=== PATIENT | female | born 1945 | race Caucasian/White ===

== ENCOUNTER 2016-06-20 13:00 | Emergency (ER) | payer MEDICARE, MEDICAID ==
[2016-06-20 13:19] VITALS: BP 138/78
--- NOTE | 2016-06-20 14:06 | EDM.PDOC ---
ED HPI Trauma - General Chief Complaint: Lower Extremity Injury/Pain Stated Complaint: ?? BRUISING IN HER LEGS/FEET Time Seen by Provider: 06/20/16 13:20 Source: Reports: Patient, RN, RN notes reviewed History Limitations: Reports: No limitations - History of Present Illness INITIAL COMMENTS - FREE TEXT/NARRATIVE: 70-year-old female presents emergency room with complaints of bruising in her lower legs. He denies any specific injury today. She did fall about a week ago and had a bruise in the lower leg but notices new bruising over the left foot and right proximal and lower leg. She denies any significant pain or discomfort she denies any swelling in her joints. She is on Coumadin for atrial fibrillation. She had her INR checked last Tuesday and it was subtherapeutic. Her Coumadin has been adjusted. She's also insulin-dependent diabetic and has no other complaints or concerns. No shortness of breath no chest pain no swelling in her lower legs. Allergies/ADRs: Allergies Penicillins Allergy (Verified 06/20/16 13:21) Vomiting Home Medications: Ambulatory Orders Acetaminophen 650 mg PO Q4HR PRN 05/03/16 [Confirmed 05/03/16] Albuterol [IJD: Albuterol HFA] 1 puff INH Q4HR PRN 05/03/16 [Confirmed 05/03/16] Albuterol [Proventil HFA] 6.7 gm INH Q4H PRN 05/03/16 [Confirmed 05/03/16] Aspirin [Halfprin] 81 mg PO BRK 05/03/16 [Confirmed 05/03/16] Cinnamon Bark [Cinnamon] 500 mg PO BID 05/03/16 [Confirmed 05/03/16] Furosemide [Lasix] 40 mg PO DAILY 05/03/16 [Confirmed 05/03/16] Insulin Glargine,Hum.Rec.Anlog [Lantus Solostar] 18 unit SQ 2100 05/03/16 [ Confirmed 05/03/16] L.acidoph,Paracasei, B.lactis [Probiotic] 1 each PO BID 05/03/16 [Confirmed ] Losartan [Cozaar] 50 mg PO DAILY 05/03/16 [Confirmed 05/03/16] Lutein 20 mg PO DAILY 05/03/16 [Confirmed 05/03/16] MV,Ca,Min/Iron Fum/FA/Vit K [Multi For Her Tablet] 1 cap PO DAILY 05/03/16 [ Confirmed 05/03/16] Menthol [Biofreeze] 1 applic TOP QID PRN 05/03/16 [Confirmed 05/03/16] Metoprolol Tartrate [Lopressor] 100 mg PO DAILY 05/03/16 [Confirmed 05/03/16] Nitroglycerin [Nitrostat] 0.4 mg SL Q2M PRN 05/03/16 [Confirmed 05/03/16] [place]-3 Fatty Acids/Fish Oil [Fish Oil 1,200 mg Softgel] 1,200 mg PO BID [Confirmed 05/03/16] Rup Rub 1 applic TOP BID PRN 05/03/16 [Confirmed 05/03/16] Warfarin [Coumadin] 5 mg PO SUTUWETHFRSA@1800 05/03/16 [Confirmed 05/03/16] Warfarin [Coumadin] 7.5 mg PO MO@1800 05/03/16 [Confirmed 05/03/16] atorvaSTATin [Lipitor] 20 mg PO BEDTIME 05/03/16 [Confirmed 05/03/16] metFORMIN [Glucophage] 1,000 mg PO BIDMEALS 05/03/16 [Confirmed 05/03/16] Codeine/guaiFENesin [Robitussin AC] 10 ml PO Q6H PRN #10 cup 05/11/16 Dulaglutide [Trulicity] 0.75 mg SQ MO #4 pen 05/11/16 Loperamide [Imodium] 2 mg PO Q4H PRN #20 cap 05/11/16 Ondansetron HCl [Zofran] 4 mg PO Q4H PRN #20 tablet 05/11/16 Cartilage/Collagen/Bor/Hyalur [Joint Health Tablet] 1 tab PO BID 06/20/16 [ Confirmed 06/20/16] L.acidoph,Paracasei, B.lactis [Probiotic] 1 cap PO BID 06/20/16 [Confirmed 06/20] Lutein 40 mg PO DAILY 06/20/16 [Confirmed 06/20/16] Ubidecarenone [Co Q-10] 1 cap PO DAILY 06/20/16 [Confirmed 06/20/16] Past Medical History HEENT History: Reports: Impaired vision Cardiovascular History: Reports: Arrhythmia, High cholesterol, Hypertension Respiratory History: Reports: Bronchitis, recurrent Gastrointestinal History: Reports: Cholelithiasis 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: Musculoskeletal History: Reports: Other (see below) Other Musculoskeletal History: polio Psychiatric History: Reports: Depression Endocrine/Metabolic History: Reports: IDDM, Obesity/BMI 30+ Hematologic History: Reports: Anticoagulation therapy - Past Surgical History Cardiovascular Surgical History: Reports: None GI Surgical History: Reports: None Endocrine Surgical History: Reports: None Musculoskeletal Surgical History: Reports: None Social & Family History - Tobacco Use Smoking Status *Q: Unknown Ever Smoked - Caffeine Use Caffeine Use: Reports: Coffee - Recreational Drug Use Recreational Drug Use: No Review of Systems - Review of Systems Review Of Systems: ROS reveals no pertinent complaints other than HPI. Trauma Exam - Physical Exam Exam: See Below Exam Limited By: No limitations General Appearance: Reports: alert, WD/WN, no apparent distress Head: Reports: atraumatic, normocephalic Eyes: bilateral eye: EOMI Throat/Mouth: Reports: Normal inspection, Normal voice, No airway compromise Neck: Reports: non-tender, full range of motion Respiratory Exam: Reports: no respiratory distress, lungs clear Cardiovascular: Reports: regular rate, rhythm, no edema Extremities: Reports: no evidence of injury, normal range of motion, non-tender , no pedal edema. Denies: bony-point tenderness, joint effusion Neurologic: Reports: alert, oriented x 3 Skin: Reports: Ecchymosis (various degrees of bruising over the lower legs bilaterally. These are mild without hematoma. She is on anticoagulation) Course - Vital Signs Last Recorded V/S: Last Vital Signs Temp 98 F 06/20/16 13:15 Pulse 72 06/20/16 13:15 Resp 20 06/20/16 13:15 BP 138/78 06/20/16 13:15 Pulse Ox 94 L 06/20/16 13:15 - Orders/Labs/Meds Labs: Laboratory Tests 06/20/16 06/20/16 06/20/16 Range/Units 13:20 13:20 13:37 Hgb 16.0 (12.0-16.0) g/dL Hct 49.4 H (37.0-47.0) % PT 21.1 H (8.9-11.4) SEC INR 2.0 H (0.9-1.1) APTT 29.2 (20.8-31.2) SEC POC Glucose 213 H (74-106) mg/dl - Re-Assessments/Exams Free Text/Narrative Re-Assessment/Exam: 06/20/16 14:05 Patient is pleasant cooperative no acute distress at any time throughout examination. She is talkative and conversive. Departure - Departure Time of Disposition: 14:05 Disposition: Home, Self-Care 01 Condition: good Clinical Impression: Anticoagulation therapy continued upon discharge Superficial bruising of lower leg Qualifiers: Encounter type: initial encounter Laterality: unspecified laterality Qualified Code(s): S80.10XA - Contusion of unspecified lower leg, initial encounter Instructions: Warfarin: What You Need to Know, Warfarin Coagulopathy, Hematoma , [id number] Referrals: Andrea Adler MD [Primary Care Provider] - Forms: ED Department Discharge Additional Instructions: 1. Your bruising is likely related to you been on anticoagulation therapy Coumadin. Your INR today was therapeutic at 2.0. You should continue with your regular routine and dosage of Coumadin. 2. Call your provider tomorrow and notify that he been in the emergency room and had her INR checked and was therapeutic. - Assessment/Plan Assessment:: 1. Bruising on the lower legs 2. Anticoagulation therapy, INR therapeutic at 2.0. Plan: 1. Continue with your medications including your Coumadin as prescribed by her family physician. 2. Notify her family physician tomorrow but you were in the ER. Her INR is therapeutic at 2.0. 3. The bruising your experience is likely because of her anticoagulation. These are common. There is no evidence of a hematoma or hemarthrosis of the joint. All patient's questions were answered today and she was discharged to home.
== END 2016-06-20 14:35 | disposition home or self-care (01) ==
LOC: KA.ED 13:00
DX: S80.12XA Contusion of left lower leg, initial encounter (principal); S80.11XA Contusion of right lower leg, initial encounter; S90.32XA Contusion of left foot, initial encounter; E78.00 Pure hypercholesterolemia, unspecified; I10 Essential (primary) hypertension; F32.9 Major depressive disorder, single episode, unspecified; E66.9 Obesity, unspecified; E11.9 Type 2 diabetes mellitus without complications; Z88.0 Allergy status to penicillin; Z79.01 Long term (current) use of anticoagulants; W19.XXXA Unspecified fall, initial encounter
CPT/HCPCS: 36415; 82962; 85014; 85018; 85610; 85730; 99282; 99283

== ENCOUNTER 2016-12-11 12:15 | Emergency (ER) | payer MEDICARE, MEDICAID ==
[2016-12-11] MEDS ORDERED: Sodium Chloride 0.9% 5 ML Syringe FLUSH PRN (13:11)
[2016-12-11] MEDS ORDERED: Sodium Chloride 0.9% 1,000 ML IV ONE (13:11)
[2016-12-11] MEDS ORDERED: Acetaminophen 500 MG Tab PO ONE (13:23)
--- NOTE | 2016-12-11 13:25 | EDM.PDOC ---
ED HPI GENERAL MEDICAL PROBLEM - General Chief Complaint: General Stated Complaint: RECTAL BLEEDING Time Seen by Provider: 12/11/16 13:15 Source of Information: Reports: Patient History Limitations: Reports: No Limitations - History of Present Illness INITIAL COMMENTS - FREE TEXT/NARRATIVE: 71 YO WF presents to ER with 2 day history of rectal bleeding. Pt reports she was seen in [employer] 4 days ago after having her INR checked and staff noticed she looked pale and clammy. Pt was sent to ER and was evaluated for palpitations and abdominal pain. Pt had a Hgb of 14.8; INR 1.74; Pt was told she had an elevated lipase and told to stay off her metformin for 2 days. Pt had a CT abd/pelvis which showed NAD. Pt reports her last bloody bowel movement was last night. Pt states she has had 3 large bowel movements since yesterday with blood mixed with stool. Pt denies any chest pain, shortness of breath or diaphoresis at this time. Pt states she restarted her metformin this am. Onset Date: 12/08/16 Duration: Day(s): (5) Location: Reports: Generalized Severity: Mild Improves with: Reports: None Worsens with: Reports: None Associated Symptoms: Reports: Headaches, Loss of Appetite, Malaise, Weakness. Denies: Chest Pain, Cough, cough w sputum, Diaphoresis, Fever/Chills, Nausea/ Vomiting, Rash, Seizure, Shortness of Breath, Syncope - Related Data Allergies Allergy/AdvReac Type Severity Reaction Status Date / Time Penicillins Allergy Vomiting Verified 06/20/16 13:21 Home Meds: Home Meds Acetaminophen 650 mg PO Q4HR PRN 05/03/16 [History] Albuterol [IJD: Albuterol HFA] 1 puff INH Q4HR PRN 05/03/16 [History] Albuterol [Proventil HFA] 6.7 gm INH Q4H PRN 05/03/16 [History] Aspirin [Halfprin] 81 mg PO BRK 05/03/16 [History] Losartan [Cozaar] 50 mg PO DAILY 05/03/16 [History] Menthol [Biofreeze] 1 applic TOP QID PRN 05/03/16 [History] Nitroglycerin [Nitrostat] 0.4 mg SL Q5M PRN MDD 3 05/03/16 [History] [place]-3 Fatty Acids/Fish Oil [Fish Oil 1,200 mg Softgel] 1,200 mg PO BID [History] Rup Rub 1 applic TOP BID PRN 05/03/16 [History] Warfarin [Coumadin] 5 mg PO SUTUWETHFRSA@1800 05/03/16 [History] Warfarin [Coumadin] 7.5 mg PO MO@1800 05/03/16 [History] atorvaSTATin [Lipitor] 20 mg PO BEDTIME 05/03/16 [History] metFORMIN [Glucophage] 1,000 mg PO BIDMEALS 05/03/16 [History] Cartilage/Collagen/Bor/Hyalur [Joint Health Tablet] 1 tab PO BID 06/20/16 [ History] L.acidoph,Paracasei, B.lactis [Probiotic] 1 cap PO BID 06/20/16 [History] Lutein 40 mg PO DAILY 06/20/16 [History] Ubidecarenone [Co Q-10] 1 cap PO DAILY 06/20/16 [History] Aspirin [Halfprin] 81 mg PO BRK 12/11/16 [History] Cholecalciferol (Vitamin D3) [Vitamin D3] 2,000 unit PO DAILY 12/11/16 [History] Empagliflozin [Jardiance] 10 mg PO DAILY 12/11/16 [History] Fluconazole [Diflucan] 100 mg PO DAILY 12/11/16 [History] Insulin Glarg,Human.Rec.Analog [LantUS Solostar] 22 units SUBCUT BEDTIME [History] Metoprolol Tartrate [Lopressor] 50 mg PO BID 12/11/16 [History] Ubidecarenone [Co Q-10] 10 mg PO DAILY 12/11/16 [History] Past Medical History HEENT History: Reports: Impaired Vision Cardiovascular History: Reports: Arrhythmia, High Cholesterol, Hypertension Respiratory History: Reports: Bronchitis, Recurrent Gastrointestinal History: Reports: Cholelithiasis 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: Musculoskeletal History: Reports: Other (See Below) Other Musculoskeletal History: polio Psychiatric History: Reports: Depression Endocrine/Metabolic History: Reports: IDDM, Obesity/BMI 30+ Hematologic History: Reports: Anticoagulation Therapy - Past Surgical History Cardiovascular Surgical History: Reports: None GI Surgical History: Reports: None Endocrine Surgical History: Reports: None Musculoskeletal Surgical History: Reports: None Social & Family History - Tobacco Use Smoking Status *Q: Unknown Ever Smoked - Caffeine Use Caffeine Use: Reports: Coffee - Recreational Drug Use Recreational Drug Use: No ED ROS GENERAL - Review of Systems Review Of Systems: See Below Constitutional: Reports: Malaise HEENT: Reports: No Symptoms Respiratory: Reports: No Symptoms Cardiovascular: Reports: No Symptoms Endocrine: Reports: No Symptoms GI/Abdominal: Reports: Bloody Stool. Denies: Abdominal Pain : Reports: No Symptoms Musculoskeletal: Reports: No Symptoms Skin: Reports: No Symptoms Neurological: Reports: No Symptoms Psychiatric: Reports: No Symptoms Hematologic/Lymphatic: Reports: No Symptoms Immunologic: Reports: No Symptoms ED EXAM, GENERAL - Physical Exam Exam: See Below Exam Limited By: No Limitations General Appearance: Alert, WD/WN, No Apparent Distress Head: Atraumatic, Normocephalic Neck: Normal Inspection, Supple, Non-Tender, Full Range of Motion Respiratory/Chest: No Respiratory Distress, Lungs Clear, Normal Breath Sounds, No Accessory Muscle Use, Chest Non-Tender Cardiovascular: Normal Peripheral Pulses, No Edema, No Gallop, No JVD, No Murmur , No Rub, Irregularly Irregular GI/Abdominal: Normal Bowel Sounds, Soft, Non-Tender, No Organomegaly, No Distention, No Abnormal Bruit, No Mass Back Exam: Normal Inspection, Full Range of Motion, NT Extremities: Normal Inspection, Normal Range of Motion, Non-Tender, Normal Capillary Refill, No Pedal Edema Neurological: Alert, Oriented, CN II-XII Intact, Normal Cognition, Normal Gait, Normal Reflexes, No Motor/Sensory Deficits Psychiatric: Normal Affect, Normal Mood Skin Exam: Warm, Dry, Intact, Normal Color, No Rash Lymphatic: No Adenopathy Course - Vital Signs Last Recorded V/S: Last Vital Signs Temp 37.9 C 12/11/16 12:41 Pulse 109 H 12/11/16 12:41 Resp 20 12/11/16 12:41 BP 127/63 12/11/16 12:41 Pulse Ox 95 12/11/16 12:41 - Orders/Labs/Meds Orders: Active Orders 24 hr Category Date Time Status Patient Status Manage Transfer [TRANSFER] Routine ADT 12/11/16 15:04 Ordered Peripheral IV Care [RC] . DIRECTED Care 12/11/16 13:11 Active Sodium Chloride 0.9% [Syrex Flush] Med 12/11/16 13:11 Active 5 ml FLUSH Q8HR PRN Peripheral IV Insertion Adult [OM.PC] Routine Oth 12/11/16 13:11 Ordered Medication Orders Sodium Chloride (Syrex Flush) 5 ml FLUSH Q8HR PRN PRN Reason: Keep Vein Open Labs: Laboratory Tests 12/11/16 12/11/16 12/11/16 Range/Units 13:40 13:40 13:40 WBC 5.1 (5.0-10.0) 10^3/uL RBC 5.31 (3.80-5.50) 10^6/uL Hgb 14.2 (12.0-16.0) g/dL Hct 43.0 (37.0-47.0) % MCV 80.9 L (82.0-92.0) fL MCH 26.8 L (27.0-31.0) pg MCHC 33.1 (32.0-36.0) g/dL RDW 13.8 (11.5-14.5) % Plt Count 157 (150-300) 10^3/uL MPV 9.4 (7.4-10.4) fL Neut % (Auto) 54.7 (50.0-70.0) % Lymph % (Auto) 31.9 (20.0-40.0) % [place] % (Auto) 10.8 H (2.0-8.0) % Eos % (Auto) 2.1 (1.0-3.0) % Baso % (Auto) 0.5 (0.0-1.0) % Neut # (Auto) 2.8 (2.5-7.0) 10^3/uL Lymph # (Auto) 1.6 (1.0-4.0) 10^3/uL [place] # (Auto) 0.6 (0.1-0.8) 10^3/uL Eos # (Auto) 0.1 (0.1-0.3) 10^3/uL Baso # (Auto) 0.0 (0.0-0.1) 10^3/uL PT 18.9 H (8.9-11.4) SEC INR 1.8 H (0.9-1.1) APTT 31.4 H (20.8-31.2) SEC Sodium 144 (136-145) mmol/L Potassium 3.6 (3.3-5.3) mmol/L Chloride 110 (98-115) mmol/L Carbon Dioxide 20.0 L (21.0-32.0) mmol/L BUN 18 (6-25) mg/dL Creatinine 0.49 L (0.51-1.17) mg/dL Est Cr Clr Drug Dosing TNP Estimated GFR (MDRD) > 60 mL/min Glucose 110 (70-110) mg/dL Calcium 8.7 (8.7-10.3) mg/dL Total Bilirubin 0.7 (0.2-1.0) mg/dL AST 18 (15-37) U/L ALT 26 (12-78) U/L Alkaline Phosphatase 78 (46-116) IU/L Creatine Kinase (26-276) U/L CK-MB (CK-2) (0.00-4.30) ng/mL Troponin I (0.00-0.070) ng/mL Total Protein 6.8 (6.4-8.2) g/dL Albumin 3.02 (3.00-4.80) g/dL Lipase (73-393) U/L 12/11/16 Range/Units 13:40 WBC (5.0-10.0) 10^3/uL RBC (3.80-5.50) 10^6/uL Hgb (12.0-16.0) g/dL Hct (37.0-47.0) % MCV (82.0-92.0) fL MCH (27.0-31.0) pg MCHC (32.0-36.0) g/dL RDW (11.5-14.5) % Plt Count (150-300) 10^3/uL MPV (7.4-10.4) fL Neut % (Auto) (50.0-70.0) % Lymph % (Auto) (20.0-40.0) % [place] % (Auto) (2.0-8.0) % Eos % (Auto) (1.0-3.0) % Baso % (Auto) (0.0-1.0) % Neut # (Auto) (2.5-7.0) 10^3/uL Lymph # (Auto) (1.0-4.0) 10^3/uL [place] # (Auto) (0.1-0.8) 10^3/uL Eos # (Auto) (0.1-0.3) 10^3/uL Baso # (Auto) (0.0-0.1) 10^3/uL PT (8.9-11.4) SEC INR (0.9-1.1) APTT (20.8-31.2) SEC Sodium (136-145) mmol/L Potassium (3.3-5.3) mmol/L Chloride (98-115) mmol/L Carbon Dioxide (21.0-32.0) mmol/L BUN (6-25) mg/dL Creatinine (0.51-1.17) mg/dL Est Cr Clr Drug Dosing Estimated GFR (MDRD) mL/min Glucose (70-110) mg/dL Calcium (8.7-10.3) mg/dL Total Bilirubin (0.2-1.0) mg/dL AST (15-37) U/L ALT (12-78) U/L Alkaline Phosphatase (46-116) IU/L Creatine Kinase 61 (26-276) U/L CK-MB (CK-2) 1.50 (0.00-4.30) ng/mL Troponin I 0.03 (0.00-0.070) ng/mL Total Protein (6.4-8.2) g/dL Albumin (3.00-4.80) g/dL Lipase 1974 H (73-393) U/L Meds: Medications Generic Name Dose Route Start Last Admin Trade Name Freq PRN Reason Stop Dose Admin Sodium Chloride 5 ml 12/11/16 13:11 Syrex Flush FLUSH Q8HR PRN Keep Vein Open Discontinued Medications Generic Name Dose Route Start Last Admin Trade Name Freq PRN Reason Stop Dose Admin Acetaminophen 1,000 mg 12/11/16 13:23 12/11/16 13:28 Tylenol Extra Strength PO 12/11/16 13:24 1,000 mg ONETIME ONE Administration Sodium Chloride 1,000 mls @ 999 mls/hr 12/11/16 13:11 12/11/16 13:10 Normal Saline IV 12/11/16 14:11 999 mls/hr .BOLUS ONE Administration Departure - Departure Time of Disposition: 15:05 Disposition: Admitted As Inpatient 64 Condition: Fair Clinical Impression: Rectal bleeding Pancreatitis Qualifiers: Chronicity: acute Pancreatitis type: drug induced Acute pancreatitis complication: no infection or necrosis Qualified Code(s): K85.30 - Drug induced acute pancreatitis without necrosis or infection - Discharge Information Referrals: Andrea Adler MD [Primary Care Provider] - Forms: ED Department Discharge - My Orders Last 24 Hours: My Active Orders 12/11/16 13:11 Peripheral IV Care [RC] . DIRECTED Sodium Chloride 0.9% [Syrex Flush] 5 ml FLUSH Q8HR PRN Peripheral IV Insertion Adult [OM.PC] Routine 12/11/16 15:04 Patient Status Manage Transfer [TRANSFER] Routine - Assessment/Plan Last 24 Hours: My Active Orders 12/11/16 13:11 Peripheral IV Care [RC] . DIRECTED Sodium Chloride 0.9% [Syrex Flush] 5 ml FLUSH Q8HR PRN Peripheral IV Insertion Adult [OM.PC] Routine 12/11/16 15:04 Patient Status Manage Transfer [TRANSFER] Routine Assessment:: 1. acute pancreatitis 2. rectal bleeding Plan: 1. admit to hospital- [facility] 2. supportive care 3. IVF per medicine 4. serial H/H
[2016-12-11 14:44] LABS: CHLORIDE,CL 110 mmol/L (98-115); SODIUM,NA 144 mmol/L (136-145)
[2016-12-11 16:03] VITALS: BP 138/84
[2016-12-11] MEDS ORDERED: Sodium Chloride 0.9% 1,000 ML IV SCH (16:15)
== END 2016-12-11 16:40 | disposition critical access hospital (66) ==
LOC: KA.ED 12:15
DX: K62.5 Hemorrhage of anus and rectum (principal); K85.30 Drug induced acute pancreatitis without necrosis or infection; I10 Essential (primary) hypertension; F32.9 Major depressive disorder, single episode, unspecified; E78.00 Pure hypercholesterolemia, unspecified; E11.9 Type 2 diabetes mellitus without complications; E66.9 Obesity, unspecified; Z88.0 Allergy status to penicillin; Z79.82 Long term (current) use of aspirin; Z79.01 Long term (current) use of anticoagulants; Z79.4 Long term (current) use of insulin; Z79.84 Long term (current) use of oral hypoglycemic drugs; Z79.899 Other long term (current) drug therapy
CPT/HCPCS: 36415; 80053; 82550; 82553; 83690; 84484; 85025; 85610; 85730; 96360; 99285; A9270; J7030

== ENCOUNTER 2017-06-11 14:19 | Emergency (ER) | payer MEDICARE, MEDICAID ==
--- NOTE | 2017-06-11 14:41 | EDM.PDOC ---
ED HPI GENERAL MEDICAL PROBLEM - General Chief Complaint: Abdominal Pain Stated Complaint: ABDOOMINAL PAIN Time Seen by Provider: 06/11/17 14:28 Source of Information: Reports: Patient History Limitations: Reports: No Limitations - History of Present Illness INITIAL COMMENTS - FREE TEXT/NARRATIVE: 71 YO WF presents to ER complaining of - Related Data Allergies Allergy/AdvReac Type Severity Reaction Status Date / Time Penicillins Allergy Vomiting Verified 06/20/16 13:21 Home Meds: Home Meds Acetaminophen 650 mg PO Q4HR PRN 05/03/16 [History] Albuterol [IJD: Albuterol HFA] 1 puff INH Q4HR PRN 05/03/16 [History] Albuterol [Proventil HFA] 6.7 gm INH Q4H PRN 05/03/16 [History] Aspirin [Halfprin] 81 mg PO BRK 05/03/16 [History] Losartan [Cozaar] 25 mg PO DAILY 05/03/16 [History] Menthol [Biofreeze] 1 applic TOP QID PRN 05/03/16 [History] Nitroglycerin [Nitrostat] 0.4 mg SL Q5M PRN MDD 3 05/03/16 [History] [place]-3 Fatty Acids/Fish Oil [Fish Oil 1,200 mg Softgel] 1,200 mg PO BID [History] Rup Rub 1 applic TOP BID PRN 05/03/16 [History] Warfarin [Coumadin] 5 mg PO SUTUTHFRSA 05/03/16 [History] Warfarin [Coumadin] 7.5 mg PO MOWE 05/03/16 [History] atorvaSTATin [Lipitor] 20 mg PO BEDTIME 05/03/16 [History] metFORMIN [Glucophage] 1,000 mg PO BIDMEALS 05/03/16 [History] Cartilage/Collagen/Bor/Hyalur [Joint Health Tablet] 1 tab PO BID 06/20/16 [ History] L.acidoph,Paracasei, B.lactis [Probiotic] 1 cap PO BID 06/20/16 [History] Lutein 40 mg PO DAILY 06/20/16 [History] Ubidecarenone [Co Q-10] 1 cap PO DAILY 06/20/16 [History] Aspirin [Halfprin] 81 mg PO BRK 12/11/16 [History] Cholecalciferol (Vitamin D3) [Vitamin D3] 2,000 unit PO DAILY 12/11/16 [History] Empagliflozin [Jardiance] 10 mg PO DAILY 12/11/16 [History] Fluconazole [Diflucan] 100 mg PO DAILY 12/11/16 [History] Insulin Glarg,Human.Rec.Analog [LantUS Solostar] 22 units SUBCUT BEDTIME [History] Metoprolol Tartrate [Lopressor] 50 mg PO BID 12/11/16 [History] Ubidecarenone [Co Q-10] 10 mg PO DAILY 12/11/16 [History] Past Medical History HEENT History: Reports: Impaired Vision Cardiovascular History: Reports: Afib, Arrhythmia, High Cholesterol, Hypertension Respiratory History: Reports: Bronchitis, Recurrent Gastrointestinal History: Reports: Cholelithiasis Genitourinary History: Reports: UTI, Recurrent 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: Musculoskeletal History: Reports: Neck Pain, Chronic, Other (See Below) Other Musculoskeletal History: polio Neurological History: Reports: Migraines Psychiatric History: Reports: Depression Endocrine/Metabolic History: Reports: IDDM, Obesity/BMI 30+ Hematologic History: Reports: Anticoagulation Therapy - Past Surgical History Cardiovascular Surgical History: Reports: None GI Surgical History: Reports: None Endocrine Surgical History: Reports: None Musculoskeletal Surgical History: Reports: None Social & Family History - Tobacco Use Smoking Status *Q: Unknown Ever Smoked - Caffeine Use Caffeine Use: Reports: Coffee - Recreational Drug Use Recreational Drug Use: No Departure - Discharge Information Referrals: Mike Horton MANAGER [employer] [Primary Care Provider] - Forms: ED Department Discharge
[2017-06-11 14:47] VITALS: BP 128/71
--- NOTE | 2017-06-11 14:58 | EDM.PDOC ---
ED HPI GENERAL MEDICAL PROBLEM - General Chief Complaint: General Stated Complaint: Dysuria/Frequency and Vaginal lump Time Seen by Provider: 06/11/17 14:28 Source of Information: Reports: Patient History Limitations: Reports: No Limitations - History of Present Illness INITIAL COMMENTS - FREE TEXT/NARRATIVE: 71 YO WF presents to ER complaining of vaginal discomfort with urinary frequency and dysuria x 2 weeks. Pt reports she has had her diabetes medications changed recently and thinks her symptoms are related. 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 Pt uncomfortable with a male examining her. Pt wants her INR checked so she doesn't have to go to [place] for tests to be performed. Pt denies any abdominal pain, no fever/chills, no nausea/vomiting. Pt concerned about vaginal discomfort- states she has some bumps on her vulva. Duration: Week(s): (2) Location: Reports: Pelvis Quality: Reports: Ache Severity: Mild Improves with: Reports: None Worsens with: Reports: None Associated Symptoms: Reports: No Other Symptoms Vaginal Pain Score (Numeric/FACES): 4 - Related Data Allergies Allergy/AdvReac Type Severity Reaction Status Date / Time Penicillins Allergy Vomiting Verified 06/11/17 14:41 Home Meds: Home Meds Acetaminophen 650 mg PO Q4HR PRN 05/03/16 [History] Albuterol [IJD: Albuterol HFA] 1 puff INH Q4HR PRN 05/03/16 [History] Albuterol [Proventil HFA] 6.7 gm INH Q4H PRN 05/03/16 [History] Aspirin [Halfprin] 81 mg PO BRK 05/03/16 [History] Losartan [Cozaar] 25 mg PO DAILY 05/03/16 [History] Menthol [Biofreeze] 1 applic TOP QID PRN 05/03/16 [History] Nitroglycerin [Nitrostat] 0.4 mg SL Q5M PRN MDD 3 05/03/16 [History] Orange-3 Fatty Acids/Fish Oil [Fish Oil 1,200 mg Softgel] 1,200 mg PO BID [History] Rup Rub 1 applic TOP BID PRN 05/03/16 [History] Warfarin [Coumadin] 5 mg PO SUTUTHFRSA 05/03/16 [History] Warfarin [Coumadin] 7.5 mg PO MOWE 05/03/16 [History] atorvaSTATin [Lipitor] 20 mg PO BEDTIME 05/03/16 [History] metFORMIN [Glucophage] 1,000 mg PO BIDMEALS 05/03/16 [History] Cartilage/Collagen/Bor/Hyalur [Joint Health Tablet] 1 tab PO BID 06/20/16 [ History] L.acidoph,Paracasei, B.lactis [Probiotic] 1 cap PO BID 06/20/16 [History] Lutein 40 mg PO DAILY 06/20/16 [History] Ubidecarenone [Co Q-10] 1 cap PO DAILY 06/20/16 [History] Aspirin [Halfprin] 81 mg PO BRK 12/11/16 [History] Cholecalciferol (Vitamin D3) [Vitamin D3] 2,000 unit PO DAILY 12/11/16 [History] Empagliflozin [Jardiance] 10 mg PO DAILY 12/11/16 [History] Fluconazole [Diflucan] 100 mg PO DAILY 12/11/16 [History] Insulin Glarg,Human.Rec.Analog [LantUS Solostar] 22 units SUBCUT BEDTIME [History] Metoprolol Tartrate [Lopressor] 50 mg PO BID 12/11/16 [History] Ubidecarenone [Co Q-10] 10 mg PO DAILY 12/11/16 [History] Sulfamethoxazole/Trimethoprim [Septra DS] 1 each PO BID #20 tab 06/11/17 [Rx] Past Medical History HEENT History: Reports: Impaired Vision Cardiovascular History: Reports: Afib, Arrhythmia, High Cholesterol, Hypertension Respiratory History: Reports: Bronchitis, Recurrent Gastrointestinal History: Reports: Cholelithiasis Genitourinary History: Reports: UTI, Recurrent 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: Musculoskeletal History: Reports: Neck Pain, Chronic, Other (See Below) Other Musculoskeletal History: polio Neurological History: Reports: Migraines Psychiatric History: Reports: Depression Endocrine/Metabolic History: Reports: IDDM, Obesity/BMI 30+ Hematologic History: Reports: Anticoagulation Therapy - Past Surgical History Cardiovascular Surgical History: Reports: None GI Surgical History: Reports: None Endocrine Surgical History: Reports: None Musculoskeletal Surgical History: Reports: None Social & Family History - Tobacco Use Smoking Status *Q: Unknown Ever Smoked - Caffeine Use Caffeine Use: Reports: Coffee - Recreational Drug Use Recreational Drug Use: No ED ROS GENERAL - Review of Systems Review Of Systems: See Below Constitutional: Reports: No Symptoms HEENT: Reports: No Symptoms Respiratory: Reports: No Symptoms Cardiovascular: Reports: No Symptoms Endocrine: Reports: No Symptoms GI/Abdominal: Reports: No Symptoms : Reports: Dysuria, Frequency. Denies: Discharge Musculoskeletal: Reports: No Symptoms Skin: Reports: No Symptoms Neurological: Reports: No Symptoms Psychiatric: Reports: No Symptoms Hematologic/Lymphatic: Reports: No Symptoms Immunologic: Reports: No Symptoms ED EXAM, GENERAL - Physical Exam Exam: See Below Exam Limited By: No Limitations General Appearance: Alert, WD/WN, No Apparent Distress Head: Atraumatic, Normocephalic Neck: Normal Inspection, Supple, Non-Tender, Full Range of Motion Respiratory/Chest: No Respiratory Distress, Lungs Clear, Normal Breath Sounds, No Accessory Muscle Use, Chest Non-Tender Cardiovascular: Normal Peripheral Pulses, Regular Rate, Rhythm, No Edema, No Gallop, No JVD, No Murmur, No Rub GI/Abdominal: Normal Bowel Sounds, Soft, Non-Tender, No Organomegaly, No Distention, No Abnormal Bruit, No Mass (Female) Exam: Vaginal Lesions (small left sided bartholian cyst) Back Exam: Normal Inspection, Full Range of Motion, NT Extremities: Normal Inspection, Normal Range of Motion, Non-Tender, Normal Capillary Refill, No Pedal Edema Neurological: Alert, Oriented, CN II-XII Intact, Normal Cognition, Normal Gait, Normal Reflexes, No Motor/Sensory Deficits Psychiatric: Normal Affect, Normal Mood Skin Exam: Warm, Dry, Intact, Normal Color, No Rash Lymphatic: No Adenopathy Course - Vital Signs Last Recorded V/S: Last Vital Signs Temp 36.4 C 06/11/17 14:41 Pulse 94 06/11/17 14:41 Resp 18 06/11/17 14:41 BP 128/71 06/11/17 14:41 Pulse Ox 98 06/11/17 14:41 - Orders/Labs/Meds Labs: Laboratory Tests 06/11/17 06/11/17 06/11/17 Range/Units 14:35 15:00 15:00 WBC 6.7 (5.0-10.0) 10^3/uL RBC 6.20 H (3.80-5.50) 10^6/uL Hgb 15.1 (12.0-16.0) g/dL Hct 48.8 H (37.0-47.0) % MCV 78.7 L (82.0-92.0) fL MCH 24.3 L (27.0-31.0) pg MCHC 30.9 L (32.0-36.0) g/dL RDW 16.0 H (11.5-14.5) % Plt Count 187 (150-300) 10^3/uL MPV 9.4 (7.4-10.4) fL Neut % (Auto) 61.0 (50.0-70.0) % Lymph % (Auto) 29.3 (20.0-40.0) % Davidson % (Auto) 6.7 (2.0-8.0) % Eos % (Auto) 2.4 (1.0-3.0) % Baso % (Auto) 0.6 (0.0-1.0) % Neut # (Auto) 4.1 (2.5-7.0) 10^3/uL Lymph # (Auto) 2.0 (1.0-4.0) 10^3/uL Davidson # (Auto) 0.4 (0.1-0.8) 10^3/uL Eos # (Auto) 0.2 (0.1-0.3) 10^3/uL Baso # (Auto) 0.0 (0.0-0.1) 10^3/uL PT 16.7 H (8.9-11.4) SEC INR 1.7 H (0.9-1.1) Sodium (136-145) mmol/L Potassium (3.3-5.3) mmol/L Chloride (98-115) mmol/L Carbon Dioxide (21.0-32.0) mmol/L BUN (6-25) mg/dL Creatinine (0.51-1.17) mg/dL Est Cr Clr Drug Dosing Estimated GFR (MDRD) mL/min Glucose (70-110) mg/dL Calcium (8.7-10.3) mg/dL Specimen Type Urinvoid Urine Color Yellow (YELLOW) Urine Appearance Slightly cloudy H (CLEAR) Urine pH 5.0 (5.0-9.0) Ur Specific [place] 1.015 (1.005-1.030) Urine Protein Negative (NEGATIVE) mg/dL Urine Glucose (UA) >=1000 H (NEGATIVE) mg/dL Urine Ketones 15 H (NEGATIVE) mg/dL Urine Occult Blood Trace-lysed H (NEGATIVE) Urine Nitrite Negative (NEGATIVE) Urine Bilirubin Negative (NEGATIVE) Urine Urobilinogen 0.2 (0.2-1.0) E.U./dL Ur Leukocyte Esterase Trace H (NEGATIVE) Urine RBC 0-5 /HPF Urine WBC 10-20 H /HPF Ur Epithelial Cells Moderate H /LPF Urine Bacteria Few (NONE TO FEW) /HPF 06/11/17 Range/Units 15:00 WBC (5.0-10.0) 10^3/uL RBC (3.80-5.50) 10^6/uL Hgb (12.0-16.0) g/dL Hct (37.0-47.0) % MCV (82.0-92.0) fL MCH (27.0-31.0) pg MCHC (32.0-36.0) g/dL RDW (11.5-14.5) % Plt Count (150-300) 10^3/uL MPV (7.4-10.4) fL Neut % (Auto) (50.0-70.0) % Lymph % (Auto) (20.0-40.0) % Davidson % (Auto) (2.0-8.0) % Eos % (Auto) (1.0-3.0) % Baso % (Auto) (0.0-1.0) % Neut # (Auto) (2.5-7.0) 10^3/uL Lymph # (Auto) (1.0-4.0) 10^3/uL Davidson # (Auto) (0.1-0.8) 10^3/uL Eos # (Auto) (0.1-0.3) 10^3/uL Baso # (Auto) (0.0-0.1) 10^3/uL PT (8.9-11.4) SEC INR (0.9-1.1) Sodium 143 (136-145) mmol/L Potassium 3.9 (3.3-5.3) mmol/L Chloride 105 (98-115) mmol/L Carbon Dioxide 24.0 (21.0-32.0) mmol/L BUN 19 (6-25) mg/dL Creatinine 0.63 (0.51-1.17) mg/dL Est Cr Clr Drug Dosing TNP Estimated GFR (MDRD) > 60 mL/min Glucose 214 H (70-110) mg/dL Calcium 9.5 (8.7-10.3) mg/dL Specimen Type Urine Color (YELLOW) Urine Appearance (CLEAR) Urine pH (5.0-9.0) Ur Specific [place] (1.005-1.030) Urine Protein (NEGATIVE) mg/dL Urine Glucose (UA) (NEGATIVE) mg/dL Urine Ketones (NEGATIVE) mg/dL Urine Occult Blood (NEGATIVE) Urine Nitrite (NEGATIVE) Urine Bilirubin (NEGATIVE) Urine Urobilinogen (0.2-1.0) E.U./dL Ur Leukocyte Esterase (NEGATIVE) Urine RBC /HPF Urine WBC /HPF Ur Epithelial Cells /LPF Urine Bacteria (NONE TO FEW) /HPF Departure - Departure Time of Disposition: 15:44 Disposition: Home, Self-Care 01 Condition: Good Clinical Impression: Bartholin cyst, Hyperglycemia Urinary tract infection Qualifiers: Urinary tract infection type: acute cystitis Hematuria presence: without hematuria Qualified Code(s): N30.00 - Acute cystitis without hematuria - Discharge Information Prescriptions: Sulfamethoxazole/Trimethoprim [Septra DS] 1 each PO BID #20 tab Instructions: Urinary Tract Infection, Adult, [id number], Bartholin Cyst or Abscess, Hyperglycemia, [id number] Referrals: Mike Horton RESIDENTIAL YOUTH COUNSELOR [Primary Care Provider] - Forms: ED Department Discharge - Assessment/Plan Assessment:: 1. Urinary tract infection 2. INR subtherapeutic 3. small Bartholan cyst 4. hyperglycemia Plan: 1. discharge home 2. septra DS BID x 10 days 3. follow up with PCP for recheck and further evaluation and treatment 4. return to ER for worsening symptoms
[2017-06-11 15:23] LABS: CHLORIDE,CL 105 mmol/L (98-115); SODIUM,NA 143 mmol/L (136-145)
[2017-06-11] MEDS ORDERED: Sulfamethoxazole/Trimethoprim 800-160 MG Tab PO SCH (16:00)
== END 2017-06-11 16:20 | disposition home or self-care (01) ==
LOC: KA.ED 14:19
DX: N30.00 Acute cystitis without hematuria (principal); N75.0 Cyst of Bartholin's gland; E11.65 Type 2 diabetes mellitus with hyperglycemia; I48.91 Unspecified atrial fibrillation; I10 Essential (primary) hypertension; Z88.0 Allergy status to penicillin; Z79.82 Long term (current) use of aspirin; Z79.84 Long term (current) use of oral hypoglycemic drugs; Z79.899 Other long term (current) drug therapy
CPT/HCPCS: 36415; 80048; 81001; 85025; 85610; 99283; 99284; A9270-GY

== ENCOUNTER 2017-07-13 15:43 | Observation (INO) | payer MEDICARE, MEDICAID ==
[2017-07-13] MEDS ORDERED: Atropine 0.1 MG/ML 10 ML Syringe IVPUSH PRN (15:54)
[2017-07-13] MEDS ORDERED: EPINEPHrine 1:10,000 1 MG/10 ML Syringe IVPUSH PRN (15:54)
[2017-07-13] MEDS ORDERED: Lidocaine 2% 100 MG/5 ML Syringe IVPUSH PRN (15:54)
[2017-07-13] MEDS ORDERED: Nitroglycerin 0.4 MG Tab.SL SL PRN ×2 (15:54→17:01)
[2017-07-13] MEDS ORDERED: [UNRECOGNIZED DRUG - REMARK] TOP PRN (17:01)
[2017-07-13] MEDS ORDERED: [UNRECOGNIZED DRUG - REMARK] TOP PRN (17:01)
[2017-07-13] MEDS ORDERED: Acetaminophen 325 MG Tab PO PRN (17:01)
[2017-07-13] MEDS: Sodium Chloride 0.9% 1,000 ML IV SCH (17:13)
[2017-07-13] MEDS ORDERED: Diclofenac Sodium 1% Gel 100 GM Tube ONE (18:21)
[2017-07-13] MEDS ORDERED: Ondansetron 4 MG/2 ML SDV IVPUSH PRN (19:25)
[2017-07-13] MEDS ORDERED: HYDROmorphone 1 MG/ML Syringe IVPUSH PRN (19:27)
[2017-07-13] MEDS: Diclofenac Sodium 1% Gel 100 GM Tube TOP PRN (19:44)
[2017-07-13] MEDS: Pantoprazole 40 MG Vial IVPUSH SCH (19:45)
[2017-07-13] MEDS ORDERED: diphenhydrAMINE 50 MG/ML SDV IVPUSH ONE ×2 (20:58→21:10)
[2017-07-13] MEDS ORDERED: diphenhydrAMINE 25 MG Cap PO ONE (21:14)
[2017-07-13] MEDS: Metoprolol Tartrate 50 MG Tab PO SCH (22:18)
[2017-07-13] MEDS: B.Bifidum/B.Longum/L.Acidophilus/L.Rhamnosus (Probiotic) Cap PO SCH (22:19)
[2017-07-13] MEDS: Insulin Detemir 100 Units/ML 3 ML Pen SUBCUT SCH (22:19)
[2017-07-13] MEDS ORDERED: tiZANidine 4 MG Tab PO PRN (22:47)
[2017-07-13] MEDS ORDERED: LORazepam 2 MG/ML SDV ONE (22:53)
[2017-07-13] MEDS: LORazepam 2 MG/ML SDV IVPUSH PRN (23:05)
[2017-07-14] MEDS: LORazepam 2 MG/ML SDV IVPUSH PRN (05:13)
[2017-07-14] MEDS: Sodium Chloride 0.9% 1,000 ML IV SCH ×2 (06:22→20:07)
[2017-07-14] MEDS: Baclofen 10 MG Tab PO PRN (07:46)
[2017-07-14] MEDS: traMADol 50 MG Tab PO PRN ×2 (07:46→21:00)
[2017-07-14] MEDS: Metoprolol Tartrate 50 MG Tab PO SCH ×2 (08:00→20:59)
[2017-07-14] MEDS: Pantoprazole 40 MG Vial IVPUSH SCH (08:00)
[2017-07-14] MEDS: B.Bifidum/B.Longum/L.Acidophilus/L.Rhamnosus (Probiotic) Cap PO SCH ×2 (08:00→20:59)
[2017-07-14] MEDS: Losartan 50 MG Tab PO SCH (08:00)
[2017-07-14 08:19] LABS: CHLORIDE,CL 108 mmol/L (98-115); SODIUM,NA 143 mmol/L (136-145)
[2017-07-14] MEDS: Acetaminophen 325 MG Tab PO SCH ×3 (13:13→21:00)
[2017-07-14] MEDS: Diazepam 5 MG Tab PO SCH ×2 (14:12→21:01)
[2017-07-14] MEDS ORDERED: Hydrocortisone Acetate 25 MG Supp RECTAL PRN (17:51)
[2017-07-14] MEDS: JARDIANCE 10 MG PO SCH (18:40)
[2017-07-14] MEDS: Insulin Detemir 100 Units/ML 3 ML Pen SUBCUT SCH (20:58)
[2017-07-14] MEDS: TERCONAZOLE 0.4% VAG SCH (20:59)
--- NOTE | 2017-07-14 21:36 | PN ---
07/14/2017 PATIENT NAME: NYLA PERDUE CHIEF COMPLAINT: Cervical neck pain, significant problems throughout the night regarding cervical neck pain, recalcitrant to multiple treatment modalities including NSAIDs, topical NSAIDs. The patient does have significant anxiety. HISTORY OF PRESENT ILLNESS: 71-year-old female who initially was presenting to the [facility] with concerns of diarrhea and rectal bleeding. She saw Gila Bird yesterday. She has been having diarrhea in the past 2 weeks with bright red blood per rectum in her stool. However, past 12 hours previously that she reported she had about five stools kind of watery with some bright red blood. Hemoglobin was normal. She had been on antibiotics for an infected and vaginal Bartholin gland. She has a history of atrial fibrillation, is on anticoagulation. She had not had a colonoscopy in quite some time. Does have a history of hemorrhoids; however, today she denies any painful bowel movements. 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 PHYSICAL EXAMINATION: VITAL SIGNS: Today, vital signs stable. Temperature 98.4, blood pressure 121/72, heart rate 94 and regular, O2 sats mid upper 90s on room air. LABS: WBC 5.5, hemoglobin 13.0, hematocrit 40.6. INR slightly elevated today at 3.4. Sodium, potassium, BUN and creatinine normal. Glucose 184. Magnesium slightly low at 1.7, calcium 8.4. Likely pseudo. Microbiology, C. diff was negative, stool for occult blood was positive. The patient anxious, it took her while to calmed down this morning. Her main complaint is cervical neck pain. 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 CV: Slightly irregular. Yesterday's exam: Genitourinary: There were no active bleeding, external hemorrhoids per report. No internal exam at that time. Likely we will need a flex sigmoidoscopy. She does have chronic atrial fibrillation. Hemoglobin yesterday in [facility] was 14.8. She did have some microcytosis. MCV 77.9, MCH 25.3 with an elevated RDW indicating likely changes more within 120 days. Does have a history of atrial fibrillation with RVR. Yesterday in the [facility], her heart rate was 114 with nonspecific T-wave abnormality; however, no EKG changes in past six months. She was admitted in observation for IV fluids and monitoring for any occult bleeding, which warranted any hemodynamic monitoring. Her C. diff was negative. She was placed on a full liquid diet. She was placed on telemetry. We have been holding her aspirin and Coumadin. She was placed on PPI therapy. Active physical exam: Abdomen, no distention. Normal bowel tones. No abdominal pain. No pedal edema. Cervical neck, her rotation is very limited, probably 15 to 20 degrees, left and right rotation with very minimal hyperextension; however, I feel this is chronic. IMPRESSION AND PLAN: 1. Diarrhea, likely functional. Clostridium difficile is negative. 2. Rectal bleeding appears to be under control, now we will likely need flex sigmoidoscopy. Continue holding aspirin, Plavix. INR is elevated at 3.4. 3. Long-term use of anticoagulation therapy. 4. Cervical neck spasm. This is quite significant. We will place her on Valium 5 mg p.o. t.i.d. along with other conservative treatments with NSAIDs cream. We will hold tizanidine at this time. 5. Anxiety, acute on chronic. Lorazepam 0.5 mg IV push q.4 hours p.r.n. 6. Atrial fibrillation. Elevated NATHALIA-VASc 2 score, right now CVR, holding anticoagulation due to supratherapeutic INR and with GI bleed. Continue with PPI therapy. Monitor for any hemodynamic instabilities. Hemoglobin in the a.m. She is on a beta-allison 50 mg p.o. b.i.d. 7. Diabetes mellitus type 2. We will continue with long-acting Levemir along with Jardiance. Hold metformin for now. Continue to hold metformin. OVERALL PLAN: Keep the patient another 24 to 48 hours to see if we can get some improvement with her cervical neck spasms with Valium and other conservative measures. She has significant anxiety, however, this seems to be improved. I will continue with benzodiazepine, monitor carefully due to concomitant Valium. Continue to monitor for any hemodynamic instability. Likely will need a flex sigmoidoscopy. Place a PT consult in today for possible nerve stimulation of her cervical neck. /[id number]/MODL
[2017-07-15] MEDS: Acetaminophen 325 MG Tab PO SCH ×6 (03:48→21:09)
[2017-07-15] MEDS: B.Bifidum/B.Longum/L.Acidophilus/L.Rhamnosus (Probiotic) Cap PO SCH ×2 (08:52→21:09)
[2017-07-15] MEDS: JARDIANCE 10 MG PO SCH (08:52)
[2017-07-15] MEDS: Diazepam 5 MG Tab PO SCH ×5 (08:53→21:09)
[2017-07-15] MEDS: 20% Ketoprofen 12 GM, 3% Menthol 1.8 GM & 8% Trolamine Salicylate 46.2 GM TOP PRN ×6 (08:57→21:15)
[2017-07-15] MEDS: Losartan 50 MG Tab PO SCH (08:59)
[2017-07-15] MEDS: Metoprolol Tartrate 50 MG Tab PO SCH ×2 (09:02→21:09)
[2017-07-15] MEDS: Pantoprazole 40 MG Vial IVPUSH SCH (09:04)
[2017-07-15] MEDS: Sodium Chloride 0.9% 1,000 ML IV SCH (09:13)
[2017-07-15] MEDS: traMADol 50 MG Tab PO PRN (11:57)
[2017-07-15] MEDS: Diclofenac Sodium 1% Gel 100 GM Tube TOP PRN (15:39)
--- NOTE | 2017-07-15 16:27 | PN ---
07/15/2017 PATIENT NAME: NYLA PERDUE CHIEF COMPLAINT: Cervical neck pain, somewhat improved. Anxiety majorly improved. BRIEF HISTORY: A 71-year-old female initially admitted to the [facility] with concerns of diarrhea and rectal bleeding. She was admitted by Gila Bird. She had been having diarrhea the past 2 weeks with bright red blood per rectum. Her hemoglobin had been stable. She had been having some watery stools. She does have a positive lactoferrin; however, negative C. diff. However, due to atrial fibrillation, she has been on anticoagulation. We have been holding her Coumadin and did have an elevated INR on admission, so she has been on a monitor and storage bin tender the first 24 hours of admission, however, significant anxiety throughout the first night of admission and into the day, not wanting to do things for herself, requiring multiple nursing attention and phone calls to the provider for anxiety and cervical neck pain. Laboratory-wolf, her hemoglobin has been stable and normal 12.6 hemoglobin with a 40.1 hematocrit. Neutrophils have been normal. INR down to 2.9. Today holding Coumadin. Electrolytes have been stable. Magnesium slightly low at 1.7. Vital signs are stable. Blood pressure 114/80, heart rate 93, irregular today due to atrial fibrillation, temperature 96.7, and O2 sats on room air. CV irregular rhythm. Lungs are clear to auscultation. Cervical neck: She does have approximately 20% cervical rotation left and right. She is limited by significant muscle spasm in her neck. GI-wolf, no abdominal distention. She got good bowel tones. She does have very minimal streaks of bright red blood after each bowel movement, likely internal hemorrhoid. Skin is pallor. However, this is consistent with her chronically. No lightheadedness or dizziness. Microbiology, C. diff negative, lactoferrin positive. Stool for occult blood positive. IMPRESSION AND PLAN: 1. Diarrhea, likely functional. C. diff is negative. However, mostly GI, viral gastroenteritis related due to a positive stool lactoferrin. This seems to be improving. 2. Bright red blood per rectum. This is very minimal. Holding aspirin and Plavix. INR is 2.9. We will monitor that. 3. Cervical neck spasms, extreme significant on admission, however, there is some improvement with ongoing Valium and conservative measures with NSAIDs cream. Holding tizanidine at this time. 4. Anxiety. Severe extreme likely due to acute on chronic. She has significant life stressors with moving and moving at her home, selling her home and relocating. Social service consult placed. She had been evaluated today for that. Continue with as needed lorazepam. 5. Atrial fibrillation. [id number] score is high, however, risk versus benefit. We will continue holding her Plavix and Lasix. Monitoring for any ongoing worsening GI bleed. Monitoring for vital signs for any hemodynamic stability, I think that she is stable. We will continue with PPI therapy. Monitor hemoglobin. Continue with beta-allison and likely will need a flexible sigmoidoscopy or a colonoscopy as an outpatient. We will set her up for that. 6. Diabetes mellitus type 2. Continue with long-acting insulin along with Jardiance. Holding metformin down for now. 7. Disposition. I would have liked to discharge the patient today; however, there are complications regarding patient's ride and her anxiety state right now. 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 We will keep her observation for one more day. Anticipate discharge tomorrow. Family will be notified, we cannot reach them at this time. Significant discussion and long discussion with the patient regarding how she has met her goals of this hospitalization and will have Physical Therapy evaluate her neck today for ongoing needs. /[id number]/MODL
[2017-07-15] MEDS: Insulin Detemir 100 Units/ML 3 ML Pen SUBCUT SCH (21:10)
[2017-07-15] MEDS: TERCONAZOLE 0.4% VAG SCH (21:18)
[2017-07-16] MEDS: Acetaminophen 325 MG Tab PO SCH ×3 (01:17→08:50)
[2017-07-16] MEDS: Baclofen 10 MG Tab PO PRN (02:04)
[2017-07-16] MEDS: B.Bifidum/B.Longum/L.Acidophilus/L.Rhamnosus (Probiotic) Cap PO SCH (08:51)
[2017-07-16] MEDS: Diazepam 5 MG Tab PO SCH (08:51)
[2017-07-16] MEDS: 20% Ketoprofen 12 GM, 3% Menthol 1.8 GM & 8% Trolamine Salicylate 46.2 GM TOP PRN ×3 (08:53)
[2017-07-16] MEDS: Pantoprazole 40 MG Vial IVPUSH SCH (08:54)
[2017-07-16] MEDS: Metoprolol Tartrate 50 MG Tab PO SCH (08:57)
[2017-07-16] MEDS: JARDIANCE 10 MG PO SCH (08:57)
[2017-07-16] MEDS: Losartan 50 MG Tab PO SCH (08:57)
[2017-07-16 08:58] VITALS: BP 115/62
--- NOTE | 2017-07-19 11:51 | PCM.DCSUM1 ---
Discharge Summary - Discharge Data Discharge Date: 07/16/17 Discharge Disposition: Home, Self-Care 01 Condition: Fair - Patient Summary/Data Complications: remained hemodynamically stable although she did have significant complications with increasing in her neck pain and spasms requiring multiple medication including Valium. He did have ongoing mild bright red blood per rectum however hemodynamically stable. Significant acute on chronic anxiety Consults: Consultations 07/14/17 11:32 Consult to Physical Therapy [PT Evaluation and Treatment] [CONS] Routine Recommended Follow-up Testing/Procedures: Jovan will need either colonoscopy or flexible sigmoidoscopy - Patient Instructions Diet: Usual Diet as Tolerated Activity: No Strenuous Activities, Rest and Relax Today Driving: Do Not Drive Showering/Bathing: May Shower Notify Provider of: Fever, Increased Pain, Nausea and/or Vomiting - Discharge Plan Prescriptions/Med Rec: Baclofen 10 mg PO TID #60 tablet Diazepam [Valium] 5 mg PO TID PRN #20 tablet PRN Reason: worsening neck spasms Rup Rub 1 applic TOP BID PRN #4 oz PRN Reason: neck pain Home Medications: Home Meds Acetaminophen 650 mg PO Q4HR PRN 05/03/16 [History] Aspirin [Halfprin] 81 mg PO BRK 05/03/16 [History] Losartan [Cozaar] 50 mg PO DAILY 05/03/16 [History] Menthol [Biofreeze] 1 applic TOP QID PRN 05/03/16 [History] Nitroglycerin [Nitrostat] 0.4 mg SL Q5M PRN MDD 3 05/03/16 [History] [place]-3 Fatty Acids/Fish Oil [Fish Oil 1,200 mg Softgel] 1,200 mg PO BID [History] atorvaSTATin [Lipitor] 20 mg PO BEDTIME 05/03/16 [History] metFORMIN [Glucophage] 1,000 mg PO BIDMEALS 05/03/16 [History] Cartilage/Collagen/Bor/Hyalur [Joint Health Tablet] 1 tab PO BID 06/20/16 [ History] L.acidoph,Paracasei, B.lactis [Probiotic] 1 cap PO BID 06/20/16 [History] Lutein 40 mg PO DAILY 06/20/16 [History] Ubidecarenone [Co Q-10] 1 cap PO DAILY 06/20/16 [History] Cholecalciferol (Vitamin D3) [Vitamin D3] 2,000 unit PO DAILY 12/11/16 [History] Empagliflozin [Jardiance] 10 mg PO DAILY 12/11/16 [History] Metoprolol Tartrate [Lopressor] 50 mg PO BID 12/11/16 [History] Cinnamon Bark [Cinnamon] 500 mg PO BID 07/13/17 [History] Insulin Glarg,Human.Rec.Analog [Lantus Solostar] 24 units SUBCNJ BEDTIME [History] Terconazole 1 applic VAG BEDTIME 07/13/17 [History] Hydrocortisone Acetate [Anusol-Hc] 25 mg RC BID 07/15/17 [History] Baclofen 10 mg PO TID #60 tablet 07/16/17 [Rx] Diazepam [Valium] 5 mg PO TID PRN #20 tablet 07/16/17 [Rx] Rup Rub 1 applic TOP BID PRN #4 oz 07/16/17 [Rx] Referrals: Gila Bird [employer] [Nurse Practitioner] - 07/18/17 (All [facility] Tuesday for an appointment, [phone], see Gila Tuesday) - Discharge Summary/Plan Comment DC Time >30 min.: Yes Discharge Summary/Plan Comment: BASIC history 71-year-old female initially initially seen [facility] and was admitted due to GI been rectal bleeding. He been having diarrhea past 2 weeks bright red blood per rectum however her hemoglobin had been stable. She also has some loose watery stools in which he had a positive lactoferrin early on admission. Has a history of atrial fibrillation in which she takes anticoagulation Coumadin and did have an slightly elevated INR on admission. Hospital course, although patient was hemodynamically stable with normal H/H, she continued to have ongoing bouts of bright red blood per rectum with some loose stools, vital signs stable, positive lactoferrin. She had significant neck pain with cervical spasms requiring Valium, NSAIDs, heating pad, cervical ray demonstrated new diagnosis of ankylosing spondylitis, she had approximately 50% improvement on discharge. Her anxiety was increased tremendously upon discharge and throughout the first night click contributable to ongoing moving her household goods selling of her home and moving [place] ankylosing spondylitis functional index (BASFI) significantly high quality of life issues. Likely requiring physical therapy final diagnosis viral gastroenteritis Right red blood per rectum,likely hemorrhoids cervical neck spasms, Ankylosing spondylitis Anxiety atrial fibrillation, holding anticoagulation medication adjustments and changes, Hold anticoagulation until follow-up, NSAID creams to neck. Valium Baclofen patient was discharged in the care of her daughter with close follow-up in [facility] likely colonoscopy flex sigmoidoscopy required. Continue holding anticoagulation. - General Info Functional Status: Reports: Pain Controlled, Ambulating - Review of Systems General: Denies: Fever, Weakness, Fatigue HEENT: Reports: No Symptoms Pulmonary: Reports: No Symptoms Cardiovascular: Reports: No Symptoms Gastrointestinal: Reports: Other (mild bright red blood per rectum). Denies: Abdominal Pain, Decreased Appetite, Diarrhea, Nausea Genitourinary: Reports: No Symptoms Musculoskeletal: Reports: Neck Pain Skin: Reports: No Symptoms Neurological: Denies: Difficulty Walking, Weakness Psychiatric: Reports: Anxiety (anxiety much improved in the hospital however significant on admission) - Patient Data Vitals - Most Recent: Last Vital Signs Temp 97.5 F 07/16/17 06:16 Pulse 102 H 07/16/17 08:57 Resp 20 07/16/17 06:16 BP 115/62 07/16/17 08:57 Pulse Ox 96 07/16/17 06:18 Weight - Most Recent: 191 lb 9.6 oz Med Orders - Current: Current Medications Discontinued Medications Acetaminophen (Tylenol) 650 mg PO Q4H PRN PRN Reason: Pain Acetaminophen (Tylenol) 650 mg PO Q4H [facility] Last Admin: 07/16/17 08:50 Dose: 650 mg Atropine Sulfate (Atropine 0.1 Mg/Ml) 0 mg IVPUSH ASDIRECTED PRN PRN Reason: Heart Baclofen (Lioresal) 5 mg PO TID PRN PRN Reason: neck spasm Last Admin: 07/16/17 02:04 Dose: 5 mg Ketoprofen 12 gm/ Menthol 1.8 gm/ Trolamine Salicylate 46.2 gm 0 gm TOP BID PRN PRN Reason: PAIN Last Admin: 07/16/17 08:53 Dose: 1 brian Diazepam (Valium.) 5 mg PO TID [facility] Last Admin: 07/16/17 08:51 Dose: 5 mg Diclofenac Sodium (Voltaren 1% Gel) Confirm Administered Dose 100 gm .ROUTE .STK -MED ONE Stop: 07/13/17 18:22 Last Admin: 07/13/17 19:46 Dose: Not Given Diclofenac Sodium (Voltaren 1% Gel) 0 gm TOP BID PRN PRN Reason: Pain Last Admin: 07/15/17 15:39 Dose: 1 applic Diphenhydramine HCl (Benadryl) 25 mg IVPUSH ONETIME ONE Stop: 07/13/17 20:59 Last Admin: 07/14/17 07:08 Dose: Not Given Diphenhydramine HCl (Benadryl) 25 mg IVPUSH ONETIME ONE Stop: 07/13/17 21:11 Last Admin: 07/14/17 07:08 Dose: Not Given Diphenhydramine HCl (Benadryl) 25 mg PO ONETIME ONE Stop: 07/13/17 21:15 Last Admin: 07/13/17 22:12 Dose: 25 mg Epinephrine HCl (Epinephrine 1:10,000) 1 mg IVPUSH ASDIRECTED PRN PRN Reason: Heart Hydrocortisone Acetate (Anucort-Hc) 25 mg RECTAL BID PRN PRN Reason: Hemorrhoids Last Admin: 07/14/17 18:47 Dose: 25 mg Hydromorphone HCl (Dilaudid) 1 mg IVPUSH Q4H PRN PRN Reason: Pain (severe 7-10) Last Admin: 07/13/17 20:39 Dose: 1 mg Sodium Chloride (Normal Saline) 1,000 mls @ 75 mls/hr IV ASDIRECTED [facility] Last Admin: 07/15/17 09:13 Dose: 75 mls/hr Insulin Detemir (Levemir) 24 unit SUBCUT BEDTIME [facility] Last Admin: 07/15/17 21:10 Dose: 24 units Lactobacillus Acidophilus/Rhamnosus (Multi-Fidelia Plus) 1 cap PO BID [facility] Last Admin: 07/16/17 08:51 Dose: 1 cap Lidocaine HCl (Xylocaine 2%) 0 mg IVPUSH ASDIRECTED PRN PRN Reason: Heart Lorazepam (Ativan) 0.5 mg IVPUSH Q4H PRN PRN Reason: Anxiety Last Admin: 07/14/17 05:13 Dose: 0.5 mg Lorazepam (Ativan) Confirm Administered Dose 2 mg .ROUTE .STK-MED ONE Stop: 07/13/17 22:54 Last Admin: 07/14/17 00:05 Dose: Not Given Losartan Potassium (Cozaar) 50 mg PO DAILY [facility] Last Admin: 07/16/17 08:57 Dose: 50 mg Metoprolol Tartrate (Lopressor) 50 mg PO BID [facility] Last Admin: 07/16/17 08:57 Dose: 50 mg Nitroglycerin (Nitrostat) 0.4 mg SL ASDIRECTED PRN PRN Reason: Heart Nitroglycerin (Nitrostat) 0.4 mg SL Q5M PRN PRN Reason: Chest Pain Non-Form (Biofreeze Gel) 1 applic TOP QID PRN PRN Reason: Pain Ondansetron HCl (Zofran) 4 mg IVPUSH Q4H PRN PRN Reason: Nausea/Vomiting Last Admin: 07/13/17 22:26 Dose: 4 mg Pantoprazole Sodium (Protonix Iv) 40 mg IVPUSH DAILY [facility] Last Admin: 07/16/17 08:54 Dose: 40 mg Ptom Jardiance (10 Mg Tab) 1 each PO DAILY [facility] Last Admin: 07/16/17 08:57 Dose: 1 each PtomTerconazole (0.4% Cream) 1 each VAG BEDTIME [facility] Last Admin: 07/15/17 21:18 Dose: Not Given Tizanidine HCl (Zanaflex) 2 mg PO Q4H PRN PRN Reason: Muscle Spasm Last Admin: 07/14/17 04:57 Dose: 2 mg Tramadol HCl (Ultram) 50 mg PO Q6H PRN PRN Reason: Pain (moderate 4-6) Last Admin: 07/15/17 11:57 Dose: 50 mg - Exam Quality Assessment: Denies: Supplemental Oxygen General: Reports: Alert, Oriented, Mild Distress Lungs: Reports: Clear to Auscultation, Normal Respiratory Effort Cardiovascular: Reports: Regular Rate. Denies: Regular Rhythm GI/Abdominal Exam: Soft, Non-Tender. No: Rigid, Abnormal Bowel Sounds, Mass Rectal (Female) Exam: Bloody Stool Extremities: No Pedal Edema Neurological: Reports: Normal Gait, Normal Tone, Sensation Intact Psy/Mental Status: Reports: Alert, Anxious, Depressed
== END 2017-07-16 12:00 | disposition home or self-care (01) ==
LOC: KA.MS 15:43 → INTOOBSV 15:43
PROVIDERS: ADMIT Nurse Practitioner Family; ATTEND Family Medicine
DX: K59.1 Functional diarrhea (principal); M54.2 Cervicalgia; F41.9 Anxiety disorder, unspecified; I10 Essential (primary) hypertension; E11.40 Type 2 diabetes mellitus with diabetic neuropathy, unspecified; E66.9 Obesity, unspecified; E78.1 Pure hyperglyceridemia; G60.9 Hereditary and idiopathic neuropathy, unspecified; I48.2 Chronic atrial fibrillation; K21.9 Gastro-esophageal reflux disease without esophagitis; E55.9 Vitamin D deficiency, unspecified; Z90.49 Acquired absence of other specified parts of digestive tract; Z79.4 Long term (current) use of insulin; Z79.899 Other long term (current) drug therapy; Z79.01 Long term (current) use of anticoagulants; Z79.82 Long term (current) use of aspirin; Z88.0 Allergy status to penicillin; Z68.30 Body mass index [BMI] 30.0-30.9, adult
CPT/HCPCS: 36415; 36416; 72040; 80048; 81003; 82272; 82962; 83630; 83735; 85025; 85610; 87324; 96361; 96374; 96375; 96376; 97161-GP; A9270-GY; C9113; G0378; G0379; J1170; J1815-GY; J2060; J2405; J7030